=== PATIENT | male | born 2005 | race Caucasian/White ===

== ENCOUNTER 2024-10-28 17:34 | Emergency (ER) | payer BC, SELFPAY ==
[2024-10-28 18:07] VITALS: BP 127/82; PULSE 88; TEMP 36.9; O2SAT 98; BMI 21.4
--- NOTE | 2024-10-28 18:42 | XR_ITS ---
The [address] [address] Patient Name: SAMARIA HO MRN: [id number] date: 2005 Sex: M Assigned Patient Location: ER Current Patient Location: Accession/Order Number: [id number] Exam Date: 10/28/2024 18:38 Report Date: 10/28/2024 21:22 At the request of: PONCE LEO Procedure: XR ribs LT min 3V w CXR1V EXAMINATION: XR ribs LT min 3V w CXR1V HISTORY: pain ; acute lateral left mid rib pain COMPARISON: No relevant comparison available. FINDINGS: LUNGS: No significant pulmonary parenchymal abnormalities. PLEURA: No pneumothorax, effusion, or pleural thickening. MEDIASTINUM: No visible mass or adenopathy. CARDIAC: No cardiomegaly or cardiac silhouette abnormality. RIBS: Normal. No significant arthropathy or acute abnormality. OTHER: Negative. XR/XR ribs LT min 3V w CXR1V IMPRESSION: 1. No acute cardiopulmonary process. 2. No appreciable rib abnormality. Electronically authenticated by: CHENCHO ALEXANDRE Date: 10/28/2024 21:22
[2024-10-28 19:50] VITALS: BP 144/90; PULSE 85; O2SAT 99
--- NOTE | 2024-10-28 19:52 | PC.NURSE ---
Left lower ribs lateral and radiates to the front. No trauma noted
--- NOTE | 2024-10-28 19:57 | ED_ITS ---
HPI HPI - General Adult General Chief complaint: Extremity Problem, Nontraumatic Stated complaint: Rib Pain Time Seen by Provider: 10/28/24 19:47 Mode of arrival: walk-in History of Present Illness HPI narrative: This 19-year-old male presents for evaluation of left anterior lower rib cage pain. The patient states he was working earlier today and was twisting and heard a pop in his lower rib cage area. He has had pain in that area since that time. He denies any injury or falls. He is not short of breath. He denies tobacco use. He has not taken any medication for his discomfort. He denies any abdominal pain or back pain. He has no lower extremity pain or swelling. Related Data Home Medications ?Medication ?Instructions ?Recorded ?Confirmed No Known Home Medications 10/28/24 10/28/24 Allergies Allergy/AdvReac Type Severity Reaction Status Date / Time No Known Drug Allergies Allergy Verified 10/28/24 18:07 Opioid HPI Opioid Management Most Recent Opioid Data: Last Pain Scale 8 10/28/24 19:51 10/28/24 Review of Systems ROS Status of ROS 10 or more systems reviewed and unremark able except as noted in history and below PFSH PFSH Social History Little interest or pleasure in doing things: not at all Feeling down, depressed, or hopeless: not at all Exam Narrative Exam Narrative: Vital signs and Nursing Notes reviewed: Patient is afebrile with a normal pulse, blood pressure is mildly elevated 144/90, he is not hypoxic with pulse ox of 99% on room air General: Awake, alert, oriented, no acute distress, lying comfortably on the stretcher HEENT: Normocephalic atraumatic, mucous membranes are moist and pink, eyes are clear, normal conjunctiva, vision is grossly intact Chest: Lungs are clear to auscultation with good air entry, there is no wheezing rhonchi or rales appreciated no accessory muscle use, patient is speaking in complete sentences-mild tenderness to palpation in the left anterior lower ribs. There is no crepitus or skin rash noted CVS: Regular rate and rhythm S1-S2, no murmurs rubs or gallops, pulses are brisk and equal bilaterally ABD: Soft, nondistended, nontender, no rebound guarding or rigidity, bowel sounds are normal, no pulsatile masses appreciated Extremities: Moving all extremities, no lower extremity tenderness or swelling noted, negative Homans' sign, pulses are brisk and equal bilaterally Skin: Normal in appearance without rash,pallor, petechiae or purpura Neuro: No focal deficits Constitutional Vital Signs, click to edit/add: Last Vital Signs Temp 98.4 F 10/28/24 18:07 Pulse 85 10/28/24 19:50 Resp 16 10/28/24 19:53 BP 144/90 H 10/28/24 19:50 Pulse Ox 99 10/28/24 19:50 O2 Del Method Room Air 10/28/24 19:50 Course Vital Signs Vital signs: Vital Signs Temperature 98.4 F 10/28/24 18:07 Pulse Rate 88 10/28/24 18:07 Respiratory Rate 18 10/28/24 18:07 Blood Pressure 127/82 10/28/24 18:07 Pulse Oximetry 98 10/28/24 18:07 Oxygen Delivery Method Room Air 10/28/24 18:07 Temperature 98.4 F 10/28/24 18:07 Pulse Rate 85 10/28/24 19:50 Respiratory Rate 16 10/28/24 19:53 Blood Pressure 144/90 H 10/28/24 19:50 Pulse Oximetry 99 10/28/24 19:50 Oxygen Delivery Method Room Air 10/28/24 19:50 Medical Decision Making MDM Narrative Medical decision making narrative: This 19-year-old male who is otherwise healthy and a non-smoker presents for evaluation of left lower rib cage pain that started earlier today while at work when he was twisting and felt a popping sensation in his lower rib cage area. He does not have any shortness of breath or abdominal pain. His physical exam is benign. He has normal pulse ox. His lungs are clear. There is mild tenderness at the left lower anterior rib cage area without any crepitus or skin rash. X-ray of the chest and ribs is reviewed by myself and does not show any infiltrate, pneumothorax or bony abnormality of his rib cage. He was medicated emergency department Tylenol and ibuprofen and will be discharged home with prescription for ibuprofen with recommendation for gentle stretching moist heat and return to the emergency department for worsening symptoms or any concerns. Discharge Plan Discharge Chief Complaint: Extremity Problem, Nontraumatic Clinical Impression: Rib pain Patient Disposition: Home, Self-Care Time of Disposition Decision: 20:00 Condition: Good Prescriptions / Home Meds: No Action No Known Home Medications Print Language: German Instructions: Chest Wall Pain (ED) Referrals: Sonja Thomas MD [Primary Care Provider] - 1 week
== END 2024-10-28 20:47 | disposition home or self-care (01) ==
PROVIDERS: Emergency Provider Emergency Medicine; PCP Family Medicine
DX: R07.81 Pleurodynia (principal)
CPT/HCPCS: 71101; 99283